=== PATIENT | female | born 1965 | race Caucasian/White ===

== ENCOUNTER 2018-04-03 21:54 | Emergency (ER) | payer BC, OTHER ==
[2018-04-03 22:01] VITALS: BP 154/90; PULSE 86; TEMP 97.7; BMI 25.7
--- NOTE | 2018-04-03 22:13 | PDOC ---
History of Present Illness - General History Source: Patient Exam Limitations: No Limitations - History of Present Illness Initial Comments: 04/03/18 22:01 A portion of this note was documented by scribe services under my direction. I have reviewed the details of the note, within reason, and agree with the documentation. The case summary and management plan written by me. Procedure note laceration was cleaned with some peroxide and closed with Dermabond patient tolerated well Assessment and plan: This is a 52-year-old female with a superficial laceration of her thumb as well as a small contusion questionable puncture of the palm of her hand that patient sustained well using a knife to cut some tape off of a carpet. patient's tetanus is not up-to-date so Boostrix was given. Patient's laceration was cleaned and closed with Dermabond Patient discharged home <Mack Altamirano I - Last Filed: 04/03/18 22:00> - History of Present Illness Initial Comments: 04/03/18 22:16 HPI: The patient is a 52 year old female, with no significant past medical history, who presents to the emergency department with, a laceration to the left thumb and puncture wound to the left palm. As per patient, she was cutting tape off of a uzma using a knife when she lacerated her left thumb and punctured the palm of her left hand. She notes active bleeding at the time of the incident. She is unaware of her last tetanus shot. She denies recent fevers, chills, headache or dizziness. She denies recent nausea, vomit, diarrhea or constipation. She denies recent dysuria, frequency, urgency or hematuria. She denies recent chest pain or shortness of breath. PAST MEDICAL HISTORY: no significant history PAST SURGICAL HISTORY: no significant history FAMILY HISTORY: no pertinent history SOCIAL HISTORY: Pt lives with family and is employed. MEDICATIONS: reviewed ALLERGIES: As per nursing notes ROS: General: No fevers or chills, no weakness, no weight loss HEENT: No change in vision. No sore throat,. No ear pain CardioVascular: No chest pain or shortness of breath Respiratory:No cough, or wheezing. Gastrointestinal: no nausea, vomiting, diarrhea or constipation, No rectal bleeding Genitourinary: No dysuria, hematuria, or frequency Musculoskeletal: No joint or muscle pain or swelling Neurologic: No headache, vertigo, dizziness or loss of consciousness Psychiatric: nor depression +Skin: Laceration to the left thumb and punctate to the left palm. No rashes or easy bruising Endocrine: no increased thirst or abnormal weight change Allergic: no skin or latex allergy All other systems reviewed and normal Physical Exam: GENERAL: The patient is awake, alert, and fully oriented, in no acute distress. HEAD: Normal with no signs of trauma. EYES: Pupils equal, round and reactive to light, extraocular movements intact, sclera anicteric, conjunctiva clear. +EXTREMITIES: Left hand: 0.5 cm superficial laceration to the medial plantar aspect of the left hand with minimal oozing. Neurovascularly intact. Puncture wound to the palmar base of the 3rd digit. Normal range of motion, no edema. NEUROLOGICAL: Normal speech, normal gait. PSYCH: Normal mood, normal affect. SKIN: Warm, Dry, normal turgor, no rashes noted. <Kim Ojeda - Last Filed: 04/03/18 22:18> - General Stated Complaint: LAC LT HAND Time Seen by Provider: 04/03/18 22:00 Past History - Past Medical History Hypercholesterolemia: Yes - Suicide/Smoking/Psychosocial Hx Smoking Status: Yes Smoking History: Former smoker Have you smoked in the past 12 months: Yes Number of Cigarettes Smoked Daily: 20 'Breaking Loose' booklet given: 10/25/13 Hx Alcohol Use: Yes (SOCIAL) Substance Use Type: None <Mack Altamirano I - Last Filed: 04/03/18 22:00> <Kim Ojeda - Last Filed: 04/03/18 22:18> - Past Medical History Allergies/Adverse Reactions: Allergies Allergy/AdvReac Type Severity Reaction Status Date / Time acetaminophen [Acetaminophen] Allergy Itching Verified 10/25/13 16:02 Penicillins Allergy Verified 10/25/13 16:02 Home Medications: Ambulatory Orders Atorvastatin Ca [Lipitor] 10 mg PO DAILY 04/10/14 Oxycodone HCl [Roxicodone] 1 - 2 tab PO QID PRN #20 tablet 04/10/14 Sumatriptan [Imitrex] 5 mg NS PRN PRN 04/10/14 Topiramate [Topamax -] 175 mg PO BID 11/17/14 *Physical Exam - Vital Signs Last Vital Signs Temp Pulse Resp BP Pulse Ox 97.7 F 86 16 154/90 100 04/03/18 21:56 04/03/18 21:56 04/03/18 21:56 04/03/18 21:56 04/03/18 21:56 <Kim Ojeda - Last Filed: 04/03/18 22:18> *DC/Admit/Observation/Transfer - Discharge Dispostion Decision to Admit order: No <Mack Altamirano I - Last Filed: 04/03/18 22:00> <Kim Ojeda - Last Filed: 04/03/18 22:18> Diagnosis at time of Disposition: Laceration of thumb Qualifiers: Encounter type: initial encounter Damage to nail status: without damage Foreign body presence: without foreign body Laterality: left Qualified Code(s): S61.012A - Laceration without foreign body of left thumb without damage to nail , initial encounter - Discharge Dispostion Disposition: HOME Condition at time of disposition: Stable - Referrals Referrals: Alana Landin [Primary Care Provider] - - Patient Instructions Printed Discharge Instructions: DI for Laceration Repair With Dermabond Additional Instructions: Read over and follow Dermabond instructions keep the laceration dry for 72 hours do not use any petroleum-based products on the laceration/glue. Return to the emergency department immediately with ANY new, persistent or worsening symptoms. Continue any medications as previously prescribed by your physician. You should follow up with your primary doctor as soon as possible regarding today's emergency department visit. . Please make sure your doctor reviews the results of your emergency evaluation. Thank you for coming to the Emergency Department today for your care. It was a pleasure to see you today. Please note that your evaluation is INCOMPLETE until you follow-up with your doctor. - Post Discharge Activity
[2018-04-03] MEDS ORDERED: DIPHTH,PERTUSS(ACELL),TET 0.5 ML DISP.SYRIN IM ONE (22:15)
== END 2018-04-03 22:22 | disposition home or self-care (01) ==
LOC: FER 21:54
PROC: 3E0234Z Introduction of Serum, Toxoid and Vaccine into Muscle, Percutaneous Approach (ICD-10-PCS; principal; 2018-04-03)
PROC: 0HQGXZZ Repair Left Hand Skin, External Approach (ICD-10-PCS; 2018-04-03)
DX: S61.012A Laceration without foreign body of left thumb without damage to nail, initial encounter (principal); Z87.891 Personal history of nicotine dependence; W26.0XXA Contact with knife, initial encounter; Y93.89 Activity, other specified; Y92.89 Other specified places as the place of occurrence of the external cause
CPT/HCPCS: 90715; 99281-25

== ENCOUNTER 2020-07-23 15:05 | Emergency (ER) | payer BC | END 2020-07-23 16:17 | disposition home or self-care (01) | LOC: JVIRT 15:05 | DX: U07.1 COVID-19 (principal) | CPT/HCPCS: C9803; G2251-GT; U0003 ==